=== PATIENT | female | born 1990 | race Caucasian/White ===

== ENCOUNTER 2020-09-05 11:38 | Outpatient (CLI) | payer OTHER, SELFPAY ==
--- NOTE | 2020-09-05 11:48 | XR_ITS ---
WS: [id number] Lumbar spine, 3 views, 09/05/2020 Clinical Data: LOW BACK PAIN Comparison: None. Findings: No compression fractures or subluxation is seen. No disc space narrowing is seen. The transverse proc esses and SI joints are normal. Minimal spur at the anterior-inferior aspect of the L5 vertebral body. 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
== END 2020-09-05 11:39 | disposition home or self-care (01) ==
LOC: RAD 11:43
PROVIDERS: Visit Provider Dermatology
DX: M54.5 Low back pain (principal)
CPT/HCPCS: 72100

== ENCOUNTER 2020-12-01 22:44 | Emergency (ER) | payer OTHER, SELFPAY ==
[2020-12-01 22:57] VITALS: BP 143/93; PULSE 87; RESP 16; TEMP 36.9; O2SAT 99; BMI 36.2
--- NOTE | 2020-12-02 00:15 | XRR_ITS ---
PROCEDURE INFORMATION: Exam: XR Chest Exam date and time: 12/02/2020 12:15 AM Age: 29 years old Clinical indication: Cough and fever; Additional info: Fever/cough TECHNIQUE: Imaging protocol: XR of the chest. Views: 1 view. COMPARISON: No relevant prior studies available. FINDINGS: Lungs: Unremarkable. No consolidation. Pleural spaces: Unremarkable. No pleural effusion. No pneumothorax. Heart/Mediastinum: Unremarkable. No cardiomegaly. Bones/joints: Unremarkable. XR/XR chest 1V portable [id number] IMPRESSION: No acute findings.
--- NOTE | 2020-12-02 01:33 | ED_ITS ---
HPI - URI/Sore Throat General: Chief Complaint: Fever Stated Complaint: cough, fever, fatigued Time Seen by Provider: 12/02/20 00:02 Source: patient Mode of arrival: ambulatory Limitations: no limitations History of Present Illness: HPI Narrative: Patient is a 29-year-old female who presents to ED today with complaint of cough, shortness of breath, difficulty breathing, headache, low-grade fevers, body aches, and generally feeling ill. She states symptoms have been present over the past few days. No sick contacts. Patient is an everyday smoker. Reports no exposure to COVID. She is not vaccinated for COVID. MD elicited complaint: fever and cough Onset (ago): day(s) Consistency: constant Severity: moderate Description of mucous: clear Able to tolerate fluids by mouth: Yes Exacerbating factors: nothing Relieving factors: nothing Associated symptoms: Reports fever(s) and headache(s); Deny abdominal pain, chest pain, diarrhea, nasal congestion, nausea or vomiting Review of Systems Const: Reports: fever(s), body aches and malaise; Denies: change in appetite or change in weight Eyes: Denies: change in vision, blurry vision, photophobia, floaters or seeing flashes ENMT: Denies: throat pain, odynophagia, nasal discharge or nasal congestion Card: Denies: chest pain, palpitations, irregular heart rhythm, edema, lightheadedness, syncope or pre-syncope Resp: Reports: dyspnea and non-productive cough; Denies: wheezing, pain on inspiration, change in phlegm color or hemoptysis GI: Denies: abdominal pain, nausea, vomiting or diarrhea : Denies: flank pain or dysuria Musc: Denies: neck pain or back pain Skin/Breast: Denies: rash Neuro: Reports: headache(s); Denies: numbness in extremities, weakness in extremities or sensory changes [facility] Female Reproductive History: Date of last menstrual period: 09/30/20 Physical Exam Const: COMMON NORMALS: no acute distress, patient oriented x3, no limitations and alert GENERAL APPEARANCE: cooperative NUTRITIONAL APPEARANCE: obese ORIENTATION/CONSCIOUSNESS: Yes awake, Yes oriented to person, Yes oriented to place and Yes oriented to time HENMT: COMMON NORMALS: normocephalic and atraumatic HEAD & SCALP: normocephalic and atraumatic Chest: COMMONS NORMALS: normal inspection of the chest and normal palpation of entire chest wall Resp: COMMON NORMALS: normal respiratory effort EFFORT & INSPECTION: No tachypneic, No respiratory distress, No labored, No stridor, No retractions and No uses accessory muscles AUSCULTATION: wheezes (scant) Cardio: COMMON NORMALS: regular rate and regular rhythm RATE: regular rate RHYTHM: regular rhythm Extremity: COMMON NORMALS: normal to inspection Neuro: COMMON NORMALS: patient oriented x3 SENSORIUM/ORIENTATION: Yes alert, Yes oriented to person, Yes oriented to place and Yes oriented to time Skin: COMMON NORMALS: no rashes or lesions noted GENERAL SKIN EXAM: no rashes or lesions noted Course Vital Signs: Vital signs: Vital Signs Temperature 98.5 F 12/01/20 22:57 Pulse Rate 87 12/01/20 22:57 Respiratory Rate 16 12/01/20 22:57 Blood Pressure 143/93 12/01/20 22:57 Pulse Oximetry 99 12/01/20 22:57 MDM - URI/Sore Throat MDM Narrative: Medical decision making narrative: Patient clinically is non- ill or nontoxic appearing. Labs are unremarkable. Rapid COVID is negative. PCR pending. CXR showing possible retrocardiac pneumonia. Patient will be placed on Augmentin and Azithromycin for CAP. Given albuterol inhaler here. Lab Data: Labs: Lab Results 12/02/20 12/02/20 12/02/20 Range/Units 01:29 01:29 01:29 WBC 11.3 H (4.0-10.0) 10^3/ uL RBC 4.77 (4.1-5.3) 10^6/u L Hgb 15.4 H (11.5-15.3) g/dL Hct 45.5 (37.0-47.0) % MCV 95.4 (81-99) fL MCH 32.3 (28.0-34.0) pg MCHC 33.8 (30.0-36.0) g/dL RDW 11.5 L (12.1-15.1) % Plt Count 237 (130-400) 10^3/c mm MPV 12.4 H (7.4-10.4) fL Neut % (Auto) 68.1 % Lymph % (Auto) 24.5 % Sierra % (Auto) 5.6 % Eos % (Auto) 1.2 % Baso % (Auto) 0.3 % Neut # (Auto) 7.69 (1.8-7.7) 10^3/u L Lymph # (Auto) 2.8 (0.8-4.8) 10^3/u L Sierra # (Auto) 0.6 (0.2-0.9) 10^3/u L Eos # (Auto) 0.1 (0.0-0.8) 10^3/u L Baso # (Auto) 0.0 (0.0-0.1) 10^3/u L Nucleated RBC % (a uto) 0 % Nucleated RBCs # 0.0 /100WBC Sodium 141 (136-145) mmol/L Potassium 3.8 (3.5-5.1) mmol/L Chloride 106 (98-107) mmol/L Carbon Dioxide 25 (22-29) mmol/L Anion Gap 13.8 (5-19) BUN 6 (6-20) mg/dL Creatinine 0.6 (0.5-0.9) mg/dL GFR Calculation 118.2 (90-130) mL/min Glucose 86 (65-115) mg/dL Calculated Osmolal ity 289 (285-295) mOsm/k g Calcium 9.0 (8.5-10.5) mg/dL Total Bilirubin 0.4 (0.15-1.2) mg/dL AST 15 (0-32) U/L ALT 15 (0-33) U/L Alkaline Phosphata se 113 H (35-105) IU/L Total Protein 6.5 L (6.6-8.7) g/dL Albumin 4.0 (3.5-5.2) g/dL Globulin 2.5 (1.3-4.6) g/dL HCG, Qual Negative (Negative) Urine Color (Yellow) Urine Appearance (CLEAR) Urine pH (5-7) Ur Specific Gravit y (1.005-1.030) Urine Protein (Negative) Urine Glucose (UA) (Normal) Urine Ketones (Negative) Urine Blood (Negative) Urine Nitrate (Negative) Urine Bilirubin (Negative) Urine Urobilinogen (Negative) mg/dL Ur Leukocyte Amaris ase (Negative) Urine RBC (0-2) /hpf Urine WBC (0-5) /hpf Ur Squamous Epith Cells (0-5) /hpf Amorphous Sediment Urine Bacteria (NONE) /hpf SARS-CoV-2 Ag (Rap id) (Negative) 12/02/20 12/02/20 Range/Units 01:29 01:29 WBC (4.0-10.0) 10^3/ uL RBC (4.1-5.3) 10^6/u L Hgb (11.5-15.3) g/dL Hct (37.0-47.0) % MCV (81-99) fL MCH (28.0-34.0) pg MCHC (30.0-36.0) g/dL RDW (12.1-15.1) % Plt Count (130-400) 10^3/c mm MPV (7.4-10.4) fL Neut % (Auto) % Lymph % (Auto) % Sierra % (Auto) % Eos % (Auto) % Baso % (Auto) % Neut # (Auto) (1.8-7.7) 10^3/u L Lymph # (Auto) (0.8-4.8) 10^3/u L Sierra # (Auto) (0.2-0.9) 10^3/u L Eos # (Auto) (0.0-0.8) 10^3/u L Baso # (Auto) (0.0-0.1) 10^3/u L Nucleated RBC % (a uto) % Nucleated RBCs # /100WBC Sodium (136-145) mmol/L Potassium (3.5-5.1) mmol/L Chloride (98-107) mmol/L Carbon Dioxide (22-29) mmol/L Anion Gap (5-19) BUN (6-20) mg/dL Creatinine (0.5-0.9) mg/dL GFR Calculation (90-130) mL/min Glucose (65-115) mg/dL Calculated Osmolal ity (285-295) mOsm/k g Calcium (8.5-10.5) mg/dL Total Bilirubin (0.15-1.2) mg/dL AST (0-32) U/L ALT (0-33) U/L Alkaline Phosphata se (35-105) IU/L Total Protein (6.6-8.7) g/dL Albumin (3.5-5.2) g/dL Globulin (1.3-4.6) g/dL HCG, Qual (Negative) Urine Color Straw (Yellow) Urine Appearance Clear (CLEAR) Urine pH 7 (5-7) Ur Specific Gravit y 1.005 (1.005-1.030) Urine Protein Neg (Negative) Urine Glucose (UA) Norm (Normal) Urine Ketones Negative (Negative) Urine Blood Neg (Negative) Urine Nitrate Negative (Negative) Urine Bilirubin Neg (Negative) Urine Urobilinogen Norm (Negative) mg/dL Ur Leukocyte Amaris ase 1+ H (Negative) Urine RBC 0-4 H (0-2) /hpf Urine WBC 5-10 H (0-5) /hpf Ur Squamous Epith Cells 0-4 H (0-5) /hpf Amorphous Sediment Not Reportable Urine Bacteria Trace (NONE) /hpf SARS-CoV-2 Ag (Rap id) Negative (Negative) Imaging Data^: CXR: Radiologist's impression: [address] [id number] ReportSigned with Addenda Patient: Eleanor Malave #: [id number]: 1990Acct#:[id number]/Sex: 29 FADM [facility]: [facility] Dr: Ordering Provider/Ordering MD: Lupis Lewis Date of Service: 12/02/20 Procedure(s): XR chest 1V portable [id number] Accession Number(s): [id number] Report Number: [id number] ADDENDUM XR/XR chest 1V portable [id number] Impression: Possible mild retrocardiac pneumonia in left lung base versus accentuation of blood vessels with overlying heart shadow. Lateral view may be helpful. Addendum Dictated By: Fredy Ramirez MDAddendum Signed By: Fredy Ramirez MDSigned Date/Time:12/02/20 0127Addendum Cosigned By: PROCEDURE INFORMATION: Exam: XR Chest Exam date and time: 12/02/2020 12:15 AM Age: 29 years old Clinical indication: Cough and fever; Additional info: Fever/cough TECHNIQUE: Imaging protocol: XR of the chest. Views: 1 view. COMPARISON: No relevant prior studies available. FINDINGS: Lungs: Unremarkable. No consolidation. Pleural spaces: Unremarkable. No pleural effusion. No pneumothorax. Heart/Mediastinum: Unremarkable. No cardiomegaly. Bones/joints: Unremarkable. XR/XR chest 1V portable [id number] IMPRESSION: No acute findings. Dictated By:Fredy Ramirez MDSigned By:Fredy Ramirez MDSigned Date/Time:12/02/20124DD/ 012 Discharge Plan Discharge Patient Disposition: Home Clinical Impression: Pneumonia Qualifiers: Pneumonia type: due to unspecified organism Laterality: left Lung location: lower lobe of lung Qualified Code(s): J18.9 - Pneumonia, unspecified organism Condition: Stable Prescriptions: New amoxicillin-pot clavulanate [Augmentin] 875-125 mg tablet 1 tab PO Q12H 7 Days Qty: 14 RF: 0 azithromycin 500 mg tablet 500 mg PO DAILY 3 Days Qty: 3 RF: 0 Discharge Orders: Discharge ED (Routine); Ordered 12/02/20 Ordered By: Lupis Lewis Patient Instructions: Pneumonia - Bacterial Coding Level of Care Code ED Bread Icer for Chg Fwd Exam Detailed
[2020-12-02 01:37] LABS: Basophils % 0.3 %; Eosinophils # 0.1 10^3/uL (0.0-0.8); Eosinophils % 1.2 %; Hematocrit 45.5 % (37.0-47.0); Hemoglobin 15.4 g/dL (11.5-15.3); Lymphocytes # 2.8 10^3/uL (0.8-4.8); Lymphocytes % 24.5 %; Mean Corpuscular HGB Conc 33.8 g/dL (30.0-36.0); Mean Corpuscular Hemoglobin 32.3 pg (28.0-34.0); Mean Corpuscular Volume 95.4 fL (81-99); Mean Platelet Volume 12.4 fL (7.4-10.4); Monocytes # 0.6 10^3/uL (0.2-0.9); Monocytes % 5.6 %; Neutrophils # 7.69 10^3/uL (1.8-7.7); Neutrophils % 68.1 %; Nucleated Red Blood Cells % 0 %; Platelet Count 237 10^3/cmm (130-400); Red Blood Count 4.77 10^6/uL (4.1-5.3); Red Cell Distribution Width 11.5 % (12.1-15.1); White Blood Count 11.3 10^3/uL (4.0-10.0)
[2020-12-02 01:47] LABS: Specific Gravity, Urine 1.005 (1.005-1.030); Urine Appearance Clear (CLEAR); Urine Color Straw (Yellow); pH Urine 7 (5-7)
[2020-12-02 01:48] LABS: Add Urine Microscopic? YES; Bilirubin Urine Neg (Negative); Blood Urine Neg (Negative); Glucose Urine UA Norm (Normal); Ketones Urine Negative (Negative); Leukocyte Esterase Urine 1+ (Negative); Nitrate Urine Negative (Negative); Protein Urine Neg (Negative); Urobilinogen Urine Norm (Negative)
[2020-12-02 01:51] LABS: HCG, Serum Qual Negative (Negative)
[2020-12-02 01:54] LABS: Bacteria Urine TRACE /hpf; RBC Urine 0-4 /hpf (0-2); Squamous Epithelial Cell Urine 0-4 /hpf (0-5)
[2020-12-02 01:55] LABS: Add Urine Culture? No
[2020-12-02 01:58] LABS: Alanine Aminotransferase 15 U/L (0-33); Alkaline Phosphatase 113 IU/L (35-105); Anion Gap 13.8 (5-19); Aspartate Amino Transferase 15 U/L (0-32); Blood Urea Nitrogen 6 mg/dL (6-20); Carbon Dioxide 25 mmol/L (22-29); Chloride 106 mmol/L (98-107); Globulin 2.5 g/dL (1.3-4.6); Glomerular Filtration Rate 118.2 mL/min (90-130); Glucose 86 mg/dL (65-115); Osmolality Calculated 289 mOsm/kg (285-295); Potassium 3.8 mmol/L (3.5-5.1); Sodium 141 mmol/L (136-145); Total Bilirubin 0.4 mg/dL (0.15-1.2); Total Protein 6.5 g/dL (6.6-8.7)
[2020-12-02 02:05] LABS: SARS Covid-2 Antigen Negative (Negative)
[2020-12-02] MEDS: azithromycin 250 mg Tablet 500 MG PO (02:39)
[2020-12-02] MEDS: amoxicillin-clav 875-125 mg Tablet 1 TAB PO (02:40)
[2020-12-02 02:51] VITALS: BP 128/87; PULSE 76; RESP 20; O2SAT 97
[2020-12-06 09:22] LABS: Quest SARS-CoV-2 RNA NOT DETECTED (NOT DETECTED)
== END 2020-12-02 02:56 | disposition home or self-care (01) ==
PROVIDERS: Emergency Provider Physician Assistant
DX: J18.9 Pneumonia, unspecified organism (principal); Z20.822 Contact with and (suspected) exposure to COVID-19
CPT/HCPCS: 71045; 80053; 81001; 84703; 85025; 87426; 87635; 99283; J3535; Q0144

== ENCOUNTER → 2020-12-27 15:33 | Outpatient (BNVA) | payer SELFPAY | PROVIDERS: PCP Nurse Practitioner; Visit Provider Nurse Practitioner | DX: I10 Essential (primary) hypertension (principal) | CPT/HCPCS: 80053; 80061; 84443; 85025 ==

== ENCOUNTER → 2021-05-02 14:07 | Outpatient (BNVA) | payer SELFPAY | PROVIDERS: PCP Nurse Practitioner; Visit Provider Nurse Practitioner | DX: N91.2 Amenorrhea, unspecified (principal) | CPT/HCPCS: 81025; 84703 ==